=== PATIENT | male | born 1975 | race Two or more races ===

== ENCOUNTER 2020-09-22 15:58 | Inpatient (IN) | payer MEDICAID, OTHER ==
[~2020-09-22] VITALS: Ht 185.4 cm; Wt 104.4 kg
[2020-09-22] MEDS ORDERED: ONDANSETRON HCL 4MG/2ML INJ IV STA (16:51)
[2020-09-22] MEDS ORDERED: MORPHINE SULFATE 4 MG/ML CPJ (NOT FOR IM USE) IV STA (16:51)
[2020-09-22] MEDS ORDERED: VANCOMYCIN 1 G PREMIX 200 ML IV ONE (17:00)
[2020-09-22] MEDS ORDERED: INSULIN REGULAR (HUMULIN R) 300UNITS/3ML VIAL SUBCUT ONE (17:00)
[2020-09-22] MEDS ORDERED: SODIUM CHLORIDE 0.9% 1000ML BAG (SEPSIS BOLUS) IV ONE (17:00)
[2020-09-22] MEDS ORDERED: PIPERACILLIN/TAZ 3.375G PREMIX 50 ML IV ONE (17:00)
[2020-09-22] MEDS ORDERED: SODIUM CHLORIDE 0.9% 1,000 ML IV ONE (17:00)
[2020-09-22 17:06] LABS: BASOPHILS % 0.2 % (0.0-2.0); EOSINOPHILS % 0.9 % (0.0-5.0); HEMATOCRIT. 21.6 % (42.0-52.0); HEMOGLOBIN. 7.8 g/dL (14.0-18.0); LYMPHOCYTES % 13.5 % (20.0-50.0); MEAN PLATELET VOLUME 8.8 fl (7.4-10.4); MONOCYTES % 7.6 % (2.0-8.0); NEUTROPHILS % 77.8 % (40.0-76.0); PLATELET 295 x1000/uL (130-400); RED CELL DISTRIBUTION WIDTH 12.6 % (11.6-14.6)
[2020-09-22 17:14] LABS: CHLORIDE 92 mEq/L (98-107)
[2020-09-22 17:17] LABS: PROTHROMBIN TIME 10.7 sec (9.6-11.0)
[2020-09-22 17:25] LABS: CLARITY URINE CLEAR (CLEAR); COLOR URINE YELLOW (YELLOW); KETONES URINE NEGATIVE (NEGATIVE); LEUKOCYTE ESTERASE URINE NEGATIVE (NEGATIVE); NITRITE URINE NEGATIVE (NEGATIVE); OCCULT BLOOD URINE 2+ (NEGATIVE); PH URINE 6.5 (4.5-8.0); PROTEIN URINE 3+ (NEGATIVE); SPECIFIC GRAVITY URINE 1.026 (1.005-1.030)
[2020-09-22] MEDS ORDERED: POTASSIUM CHLORIDE 20MEQ TABLET SR PO ONE (17:30)
[2020-09-22] MEDS ORDERED: CLONIDINE 0.2MG TABLET PO ONE (18:45)
[2020-09-22] MEDS ORDERED: ACETAMINOPHEN 325MG TABLET PO PRN (22:15)
[2020-09-22] MEDS ORDERED: ONDANSETRON HCL 4MG/2ML INJ IV PRN (22:15)
[2020-09-22] MEDS ORDERED: HYDROCODONE/ACETAMINOPHEN 5/325MG TABLET PO PRN (22:15)
[2020-09-22] MEDS ORDERED: MAGNESIUM/ALUMINUM HYDROXIDE/SIMETHICONE 30ML UDC PO PRN (22:15)
[2020-09-22] MEDS ORDERED: DOCUSATE SODIUM 100MG CAPSULE PO PRN (22:15)
[2020-09-22] MEDS ORDERED: METF1000 PO (22:36)
[2020-09-22] MEDS: AMLODIPINE 10MG TABLET PO SCH (22:49)
[2020-09-22 23:13] VITALS: BP 160/82
[2020-09-23] VITALS (10 sets, daily range): BP systolic 132–168; BP diastolic 74–97
[2020-09-23] MEDS ORDERED: PIPERACILLIN/TAZOBACTAM 3.375 G in DEXTROSE 5% WATER 50 ML IV SCH
[2020-09-23] MEDS ORDERED: DEXTROSE 50% WATER 50ML SYRINGE IV PRN (00:15)
[2020-09-23] MEDS ORDERED: VANCOMYCIN 500 MG PREMIX 100 ML IV NR (01:00)
[2020-09-23 05:13] LABS: CHLORIDE 102 mEq/L (98-107)
[2020-09-23 05:20] LABS: BASOPHILS % 0.3 % (0.0-2.0); EOSINOPHILS % 1.5 % (0.0-5.0); HEMOGLOBIN. 7.4 g/dL (14.0-18.0); LYMPHOCYTES % 17.7 % (20.0-50.0); MEAN CORPUSCULAR HEMOGLOBIN 29.3 pg (28.0-32.0); MEAN CORPUSCULAR VOLUME 81.5 fL (80.0-94.0); MEAN PLATELET VOLUME 8.5 fl (7.4-10.4); MONOCYTES % 8.9 % (2.0-8.0); NEUTROPHILS % 71.6 % (40.0-76.0); PLATELET 221 x1000/uL (130-400); RED BLOOD CELL COUNT 2.53 mill/uL (4.7-6.1); RED CELL DISTRIBUTION WIDTH 12.9 % (11.6-14.6)
[2020-09-23 05:21] LABS: HDL CHOLESTEROL 34 mg/dL (40-59)
[2020-09-23 05:24] LABS: LDL CHOLESTEROL 134 mg/dL (5-100)
[2020-09-23 05:33] LABS: HEMATOCRIT. 20.6 % (42.0-52.0)
[2020-09-23] MEDS: BLOOD SUGAR DIAGNOSTIC STRIP TEST SCH ×4 (06:28→20:46)
[2020-09-23] MEDS: ENOXAPARIN 40MG/0.4ML SYR SUBCUT SCH (09:22)
[2020-09-23] MEDS: AMLODIPINE 10MG TABLET PO SCH (09:22)
[2020-09-23] MEDS: PIPERACILLIN/TAZOBACTAM 3.375G in DEXT 5% WATER 50ML IV SCH ×2 (10:00→23:23)
[2020-09-23] MEDS: CLONIDINE 0.1MG TABLET PO PRN ×2 (11:30→17:32)
[2020-09-23] MEDS: LOSARTAN POTASSIUM 50 MG TABLET PO SCH (12:02)
[2020-09-23] MEDS: INSULIN LISPRO 100 UNITS/ML SUBCUT SCH ×4 (12:02→21:55)
[2020-09-23] MEDS ORDERED: VANCOMYCIN 1 G PREMIX 200 ML IV NR (17:00)
[2020-09-23 17:28] LABS: HEMOGLOBIN 9.7 g/dL (14.0-18.0)
[2020-09-23] MEDS: POTASSIUM CHLORIDE 20MEQ TABLET SR PO SCH (17:32)
[2020-09-23 17:43] LABS: INR 1.1; PROTHROMBIN TIME 11.4 sec (9.6-11.0)
[2020-09-23 18:37] LABS: FIBRINOGEN > 850 mg/dL (200-400)
[2020-09-23] MEDS ORDERED: ATORVASTATIN CALCIUM 40MG TABLET PO SCH (21:00)
[2020-09-23] MEDS ORDERED: INSULIN GLARGINE UD 100 UNITS/ML SYR SUBCUT SCH ×2 (22:00)
[2020-09-24] VITALS: BP 131/83
[2020-09-24 04:00] VITALS: BP 150/87
[2020-09-24] MEDS: PIPERACILLIN/TAZOBACTAM 3.375G in DEXT 5% WATER 50ML IV SCH ×2 (05:15→11:43)
[2020-09-24] MEDS: BLOOD SUGAR DIAGNOSTIC STRIP TEST SCH ×2 (05:55→11:49)
[2020-09-24] MEDS: INSULIN LISPRO 100 UNITS/ML SUBCUT SCH ×2 (06:31→11:49)
[2020-09-24 06:32] LABS: BASOPHILS % 0.4 % (0.0-2.0); EOSINOPHILS % 1.9 % (0.0-5.0); HEMATOCRIT. 23.7 % (42.0-52.0); HEMOGLOBIN. 8.5 g/dL (14.0-18.0); LYMPHOCYTES % 15.3 % (20.0-50.0); MEAN CORPUSCULAR HEMOGLOBIN 29.4 pg (28.0-32.0); MEAN CORPUSCULAR VOLUME 82.2 fL (80.0-94.0); MEAN PLATELET VOLUME 8.4 fl (7.4-10.4); MONOCYTES % 7.6 % (2.0-8.0); NEUTROPHILS % 74.8 % (40.0-76.0); PLATELET 284 x1000/uL (130-400); RED BLOOD CELL COUNT 2.88 mill/uL (4.7-6.1)
[2020-09-24 06:38] LABS: CHLORIDE 104 mEq/L (98-107)
[2020-09-24] MEDS: POTASSIUM CHLORIDE 20MEQ TABLET SR PO SCH (09:11)
[2020-09-24] MEDS: LOSARTAN POTASSIUM 50 MG TABLET PO SCH (09:11)
[2020-09-24] MEDS: AMLODIPINE 10MG TABLET PO SCH (09:12)
[2020-09-24] MEDS: ENOXAPARIN 40MG/0.4ML SYR SUBCUT SCH (09:12)
[2020-09-24] MEDS ORDERED: SILVER SULFADIAZINE 1% CREAM 25GM TOP SCH (11:00)
[2020-09-24] MEDS: CLONIDINE 0.1MG TABLET PO PRN (11:52)
[2020-09-24 15:36] VITALS: BP 153/84
[2020-09-24] MEDS ORDERED: VANCOMYCIN 1 G PREMIX 200 ML IV NR (17:00)
== END 2020-09-24 17:40 | disposition home or self-care (01) | DRG 383 ==
LOC: ER 15:58 → 5WST 18:52 → EDBEDREQ 18:53 → EDBEDREQTM 18:53 → ENRESERV 20:16
PROVIDERS: ADMIT Hospitalist; ATTEND Hospitalist
PROC: 0JBR0ZZ Excision of Left Foot Subcutaneous Tissue and Fascia, Open Approach (ICD-10-PCS; principal; 2020-09-23)
PROC: 30233N1 Transfusion of Nonautologous Red Blood Cells into Peripheral Vein, Percutaneous Approach (ICD-10-PCS; 2020-09-23)
DX: L03.116 Cellulitis of left lower limb (principal); E43 Unspecified severe protein-calorie malnutrition; N17.9 Acute kidney failure, unspecified; E11.621 Type 2 diabetes mellitus with foot ulcer; I10 Essential (primary) hypertension; E78.5 Hyperlipidemia, unspecified; D50.9 Iron deficiency anemia, unspecified; E87.6 Hypokalemia; X58.XXXA Exposure to other specified factors, initial encounter; S80.822A Blister (nonthermal), left lower leg, initial encounter; Z91.14 Patient's other noncompliance with medication regimen; Z91.19 Patient's noncompliance with other medical treatment and regimen; Y93.89 Activity, other specified; Y92.89 Other specified places as the place of occurrence of the external cause; Y99.8 Other external cause status
CPT/HCPCS: 36415; 71045; 80053; 80061; 80202; 81003; 82010; 82962; 83036; 83540; 83550; 83605; 83735; 84145; 85014; 85018; 85025; 85049; 85384; 86850; 86900; 86920; 87070; 87075; 87077; 87186; 93005; 93970; 99285; J1650; J1815; J2270; J2405; J2543; J3370; J7030; J7040; J7060; P9016